=== PATIENT | male | born 1980 | race Caucasian/White ===

== ENCOUNTER 2020-11-28 17:02 | Emergency (ER) | payer MEDICAID ==
[~2020-11-28] VITALS: Ht 152.4 cm; Wt 106.6 kg
[2020-11-28 17:05] VITALS: BP_SYST 151
[2020-11-28 17:15] VITALS: BP_SYST 151
== END 2020-11-28 17:15 ==
LOC: SED 17:02
DX: L03.116 Cellulitis of left lower limb (principal)
CPT/HCPCS: 99283